=== PATIENT | male | born 1940 | race Caucasian/White ===

== ENCOUNTER 2019-07-15 13:03 | Outpatient (REF) | payer MEDICARE, SELFPAY ==
[2019-07-15 21:29] LABS: Anion Gap 9.7 mmol/L (3-11); BUN 17 mg/dL (7-18); CO2 27.3 mmol/L (21.0-32.0); CREATININE 1.29 mg/dL (0.70-1.30); Calcium 9.7 mg/dL (8.5-10.1); Chloride 106 mmol/L (98-107); Estimated GFR 54.01 (mL/min/1.73m2); Glucose 145 mg/dL (70-100); Potassium 4.6 mmol/L (3.5-5.1); Sodium 143 mmol/L (136-145)
== END 2019-07-15 13:23 ==
LOC: NCHCN 13:03
PROVIDERS: PCP Family Medicine; Visit Provider Family Medicine
DX: I10 Essential (primary) hypertension (principal)
CPT/HCPCS: 80048

== ENCOUNTER 2020-05-30 15:35 | Outpatient (REF) | payer MEDICARE, SELFPAY ==
[2020-05-30 20:54] LABS: HCT 44.1 % (40.0-50.0); HGB 14.5 g/dL (13.5-17.5); MCH 28.9 pg (27.0-33.0); MCHC 32.9 % (32.0-36.0); MCV 87.8 fL (80-95); MPV 9.9 fL (8.0-11.0); Platelet Count 201 10^3/uL (130-400); RBC 5.02 10^6/uL (4.36-5.78); RDW 13.2 % (11.8-14.1); RDW-SD 42.6 fL; WBC 5.58 10^3/uL (4.4-10.8)
[2020-05-30 21:18] LABS: ALT 35 U/L (16-63); AST 15 U/L (15-37); Albumin 3.9 g/dL (3.4-5.0); Alkaline Phosphatase 149 U/L (46-116); BUN 25 mg/dL (7-18); Bilirubin, Total 0.4 mg/dL (0.2-1.0); CREATININE 1.22 mg/dL (0.70-1.30); Calcium 9.8 mg/dL (8.5-10.1); Calculated LDL 66 mg/dL (<100); Chloride 102 mmol/L (98-107); Cholesterol 121 mg/dL (<200); Estimated GFR 57.45 (mL/min/1.73m2); Glucose 95 mg/dL (74-106); HDL Cholesterol 36 mg/dL (40-60); Potassium 4.7 mmol/L (3.5-5.1); Sodium 137 mmol/L (136-145); Total Protein 7.5 g/dL (6.4-8.2); Triglyceride 96 mg/dL (<150)
== END 2020-05-30 15:55 ==
LOC: NCHCN 15:35
PROVIDERS: PCP Family Medicine; Visit Provider Family Medicine
DX: E11.8 Type 2 diabetes mellitus with unspecified complications (principal); I10 Essential (primary) hypertension
CPT/HCPCS: 80053; 80061; 85027

== ENCOUNTER 2021-07-24 16:18 | Outpatient (REF) | payer MEDICARE, SELFPAY ==
[2021-07-24 20:58] LABS: COMMENT (LAB VIEW ONLY) 180.08 mg/dL
[2021-07-24 21:08] LABS: ALT 30 U/L (16-63); AST 19 U/L (15-37); Albumin 4.2 g/dL (3.4-5.0); Alkaline Phosphatase 157 U/L (46-116); Anion Gap 10.5 mmol/L (3-11); BUN 24 mg/dL (7-18); Bilirubin, Total 0.5 mg/dL (0.2-1.0); CO2 26.5 mmol/L (21.0-32.0); CREATININE 1.5 mg/dL (0.70-1.30); Calcium 9.6 mg/dL (8.5-10.1); Calculated LDL 65 mg/dL (<100); Chloride 103 mmol/L (98-107); Cholesterol 135 mg/dL (<200); Estimated GFR 45.14 (mL/min/1.73m2); Glucose 69 mg/dL (74-106); HDL Cholesterol 44 mg/dL (40-60); Potassium 4.8 mmol/L (3.5-5.1); Sodium 140 mmol/L (136-145); Total Protein 7.8 g/dL (6.4-8.2); Triglyceride 132 mg/dL (<150)
== END 2021-07-24 16:19 | disposition home or self-care (01) ==
LOC: NCHCN 16:18
PROVIDERS: PCP Family Medicine; Visit Provider Family Medicine
DX: E11.8 Type 2 diabetes mellitus with unspecified complications (principal); I10 Essential (primary) hypertension; I25.10 Atherosclerotic heart disease of native coronary artery without angina pectoris
CPT/HCPCS: 80053; 80061; 82043; 82570

== ENCOUNTER 2022-01-25 15:07 | Outpatient (REF) | payer MEDICARE, SELFPAY ==
[2022-01-25 20:52] LABS: BUN 29 mg/dL (7-18); CREATININE 1.3 mg/dL (0.70-1.30); Calcium 9.2 mg/dL (8.5-10.1); Chloride 104 mmol/L (98-107); Estimated GFR 53.25 (mL/min/1.73m2); Glucose 98 mg/dL (74-106); Potassium 4.5 mmol/L (3.5-5.1); Sodium 141 mmol/L (136-145)
== END 2022-01-25 15:08 | disposition home or self-care (01) ==
LOC: NCHCN 15:07
PROVIDERS: PCP Family Medicine; Visit Provider Family Medicine
DX: I10 Essential (primary) hypertension (principal); E11.8 Type 2 diabetes mellitus with unspecified complications
CPT/HCPCS: 80048

== ENCOUNTER 2022-08-27 13:21 | Outpatient (REF) | payer MEDICARE, SELFPAY ==
[2022-08-27 21:50] LABS: Microalb ug/mg Crea 120.4 ug/mg Cr
== END 2022-08-27 13:22 | disposition home or self-care (01) ==
LOC: NCHCN 13:21
PROVIDERS: PCP Family Medicine; Visit Provider Family Medicine
DX: E11.8 Type 2 diabetes mellitus with unspecified complications (principal)
CPT/HCPCS: 82043; 82570

== ENCOUNTER 2023-01-23 13:53 | Outpatient (REF) | payer MEDICARE, SELFPAY ==
[2023-01-23 20:46] LABS: Hemoglobin A1C 7.1 % (<5.7)
[2023-01-23 20:54] LABS: ALT 33 U/L (16-63); AST 18 U/L (15-37); Albumin 3.9 g/dL (3.4-5.0); Alkaline Phosphatase 157 U/L (46-116); Anion Gap 6.9 mmol/L (3-11); BUN 19 mg/dL (7-18); Bilirubin, Total 0.5 mg/dL (0.2-1.0); CO2 30.1 mmol/L (21.0-32.0); CREATININE 1.3 mg/dL (0.70-1.30); Calcium 9.7 mg/dL (8.5-10.1); Calculated LDL 58 mg/dL (<100); Chloride 105 mmol/L (98-107); Cholesterol 120 mg/dL (<200); Estimated GFR 55.53 (mL/min/1.73m2); Glucose 125 mg/dL (74-106); HDL Cholesterol 47 mg/dL (40-60); Potassium 4.4 mmol/L (3.5-5.1); Sodium 142 mmol/L (136-145); Total Protein 8.1 g/dL (6.4-8.2); Triglyceride 77 mg/dL (<150)
== END 2023-01-23 13:54 | disposition home or self-care (01) ==
LOC: NCHCN 13:53
PROVIDERS: PCP Family Medicine; Visit Provider Registered Nurse
DX: E11.8 Type 2 diabetes mellitus with unspecified complications (principal); I25.10 Atherosclerotic heart disease of native coronary artery without angina pectoris; N18.9 Chronic kidney disease, unspecified
CPT/HCPCS: 80053; 80061; 83036

== ENCOUNTER 2023-11-04 13:05 | Outpatient (REF) | payer MEDICARE, SELFPAY ==
[2023-11-04 20:56] LABS: Anion Gap 8.4 mmol/L (3-11); BUN 23 mg/dL (7-18); CO2 27.6 mmol/L (21.0-32.0); CREATININE 1.5 mg/dL (0.70-1.30); Calcium 9.8 mg/dL (8.5-10.1); Chloride 104 mmol/L (98-107); Estimated GFR 46.48 (mL/min/1.73m2); Glucose 152 mg/dL (74-106); Potassium 4.5 mmol/L (3.5-5.1); Sodium 140 mmol/L (136-145)
== END 2023-11-04 13:06 | disposition home or self-care (01) ==
LOC: NCHCN 13:05
PROVIDERS: PCP Family Medicine; Visit Provider Nurse Practitioner Family
DX: N18.9 Chronic kidney disease, unspecified (principal)
CPT/HCPCS: 80048

== ENCOUNTER 2024-07-26 15:20 | Outpatient (REF) | payer MEDICARE, SELFPAY ==
[2024-07-26 22:17] LABS: COMMENT (LAB VIEW ONLY) 174.36 mg/dL; Microalb ug/mg Crea 47.9 ug/mg Cr
== END 2024-07-26 15:21 | disposition home or self-care (01) ==
LOC: NCHCN 15:20
PROVIDERS: PCP Family Medicine; Visit Provider Family Medicine
DX: E11.8 Type 2 diabetes mellitus with unspecified complications (principal)
CPT/HCPCS: 82043; 82570